=== PATIENT | female | born 1980 | race Caucasian/White ===

== ENCOUNTER → 2017-03-22 | Outpatient (CLI) | payer OTHER ==
[~2017-03-22] MED LIST: BIRTH CONTROL PO; FLEXERIL10 M1 PO; NAPROXEN EC375 MG PO; SYNTHROID 0.0.125 MG PO; TYLENOL W/CODEI1 TA2 PO
== END ==
LOC: RT 15:56
DX: R07.9 Chest pain, unspecified (principal); R06.02 Shortness of breath; R94.31 Abnormal electrocardiogram [ECG] [EKG]; R60.9 Edema, unspecified

== ENCOUNTER 2017-05-06 20:18 | Emergency (ER) | payer OTHER ==
[~2017-05-06] VITALS: Ht 167.6 cm; Wt 152.1 kg
--- OUTSIDE RECORDS SUMMARY | 2017-05-06 20:27 | External Medical Summary Rpt ---
Author Author IBRAHIMA Smith, [employer] Organization [employer] Address Unknown Phone Unavailable Results Hemoglobin A1c in Blood Observa Value Referen Units Interpr Notes Date tion ce etation Range Hemoglo 5.8 0.0 - % Normal < 6% Feb 13 bin A1c 7.0 NON-KETTY 2017 in [facility] 9:13 AM Blood LEVEL< 7% CONTROL LED DIABETI C LEVEL> 8% POORLY CONTROL LED DIABETI C LEVEL
--- OUTSIDE RECORDS SUMMARY | 2017-05-06 20:27 | External Medical Summary Rpt | CCD ---
Demographics Preferred Language Serbian Marital Status Unknown Baptist Affiliation Unknown Race Unknown Ethnic Group Unknown Author Author , IBRAHIMA ALEXANDRA Address Unknown Phone Immunization No patient found.
--- OUTSIDE RECORDS SUMMARY | 2017-05-06 20:27 | External Medical Summary Rpt | CCD ---
Demographics Preferred Language Slovenian Marital Status Unknown Roman Catholic Affiliation Unknown Race Unknown Ethnic Group Unknown Author Author , IBRAHIMA ALEXANDRA Address Unknown Phone Immunization No patient found.
--- OUTSIDE RECORDS SUMMARY | 2017-05-06 20:27 | External Medical Summary Rpt | CCD ---
Author Author , NAYELI ALEXANDRA Address Unknown Phone [email or web address] Purpose Continuity of Care Document - 02-13-2017 through 2016 Problems Code Diagnosis DOS Provider Status M54.30 SCIATICA, UNSPECIFIED SIDE R10.9 UNSPECIFIED ABDOMINAL PAIN Results Labs Lab Lab Date Result Refere Interp Status Commen Order Detail nces retati t Range on Hemoglobin A1c in Blood (02-13-2017 09:13) Hemoglo 5.8 % 0.0% Normal complet bin A1c 017 - ed in 09:13 7.0% Blood
--- OUTSIDE RECORDS SUMMARY | 2017-05-06 20:27 | External Medical Summary Rpt | CCD ---
Author Author , NAYELI ALEXANDRA Address Unknown Phone [email or web address] Purpose Continuity of Care Document - 02-13-2017 [...]
--- OUTSIDE RECORDS SUMMARY | 2017-05-06 20:27 | External Medical Summary Rpt | CCD ---
Author Author [employer] Address Unknown Phone Unavailable Purpose Continuity of Care Document - through 2016
--- NOTE | 2017-05-06 20:43 | Urgent Treatment Center Report ---
History of Present Issue Date/Time Seen by Provider 05/06/172040 Visit Reason Pt arrived:Walked Presenting Problem:PT C/O OF LOWER ABDOMINAL PAIN SINCE 1300 THIS AFTERNOON ALONG WITH DIARRHEA Location if Accident: Onset of symptoms date/time:05/06/17 or onset unknown for: Have you (or family members/close friends) recently traveled outside the [place]? N If Yes, where/when: Have you had exposure to infectious disease within the past month? TB? Other? Specify: c/o right lower abdominal pain since around 1300 today. Loose stools started this morning when first woke up. Didn't think much of it. Right lower back pain x days "just thought sciatica". pain still present in back "but feels like it has radiated more around to the front here ( touching right lower abdomen)". pain progressively getting worse throughout the day to the point that it is nearly unbearable. Pt texted's PCP, Raeann Deutsch, who suggested evaluation. Hx of total hysterectomy, robina, 3 csections and gastric bypass. Does have appendix. Denies dysuria, urinary frequency, urine odor. Source patient Exam Limitations obesity ALLERGIES Coded Allergies: Penicillins (07/17/16) Sulfa (Sulfonamide Antibiotics) (07/17/16) cephalexin (07/17/16) iodine (07/17/16) Home Medications Reported Medications No Known Home Medications History Medical History General CAD? No Angina: No [place]: No Hypertension? No Hyperlipidemia? No CHF? No DVT? No PE? No COPD? No Asthma? No Anemia? No GERD? No Gastric ulcers? No GI Bleed? No Hernia? No Thyroid Problems? No Hypothyroidism? No CVA? No Seizures? No Diabetes? No Renal Insuffiency? No UTI? No Stones? Yes GB Disease: Yes Nephritic Syndrome? No Asplenia? No Hepatitis? No Sickle Cell Disease? No Arthritis? No Migraines? No Cataracts? No Glaucoma? No MRSA? No HIV? No TB? No Anxiety? No Depression? No Cancer? No More? No Immunization HX DT/Tetanus Unknown Flu 2013-FSN Pneumonia Never Had Surgical Hx Previous Surgery?Y GALL BLADDER GASTRIC BYPASS C-SECTIONS X 3 WISDOM TEETH HYSTERECTOMY Family History Family HX Diabetes No CAD Yes Hypertension No Hyperlipidemia No Cancer No TB No Social History Smoking Hx Smoker: Never Smoker Tobacco: No Alcohol Alcohol: No Review of Systems All Other Systems Reviewed and Negative Constitutional denies fever, denies malaise Respiratory denies shortness of breath Cardiovascular denies chest pain Gastrointestinal see HPI, nausea (mild, intermittent), denies vomiting Genitourinary see HPI. Musculoskeletal see HPI Skin denies lesions, denies lumps, denies rash Psychiatric/Neurological denies headache, denies other (dizziness) Physical Exam Vital Signs Vital Signs Date Time Temp Pulse Resp B/P Pulse O2 O2 Flow FiO2 Ox Delivery Rate 05/06 2028 98.1 80 20 130/87 98 General Appearance mild distress, obese Respiratory Status No: respiratory distress. Lung Sounds anterior: lungs clear. posterior: lungs clear. bilateral: lungs clear. Cardiovascular regular rate/rhythm, no peripheral edema, no murmur Gastrointestinal soft, no organomegaly, abnormal bowel sounds (hyperactive), no guarding, no rebound, tenderness (RLQ), negative psoas Back CVA tenderness (R), CVA tenderness (L) Neurologic alert, oriented x 3 Skin normal color, warm/dry Medical Decision Making LABS/Meds/Orders Pt receiving controlled substance in ED? No Results/Orders Laboratory Tests 05/06/172048: Urine Color YELLOW, Urine Appearance Clear, Urine pH 6.0, Ur Specific [place] 1.025, Urine Protein NEGATIVE, Urine Ketones NEGATIVE, Urine Blood NEGATIVE, Urine Nitrate NEGATIVE, Urine Bilirubin NEGATIVE, Urine Urobilinogen 0.2, Ur Leukocyte Esterase NEGATIVE, Urine Glucose NEGATIVE Orders Procedure Date/time Status [facility] [place] URINE DIPSTICK 05/06 2049 Complete Departure Departure Time of Disposition 2057 Disposition Still a Patient Clinical Impression Primary Impression: Abdominal pain, right lower quadrant Condition STABLE Additional Instructions Discussed symptoms, exam, u/a, [facility] guidelines with pt who agrees further workup necessary and agreeable to transfer to ER. Report called to [facility] home based assistant in [facility] ER. Dr. Cuevas and charge w/ critical patient and unable to take report. Prescriptions Current Visit Scripts No Known Home Medications at 2100
--- NOTE | 2017-05-06 20:43 | Urgent Treatment Center Report ---
History of Present Issue Date/Time Seen by Provider 05/06/172040 Visit Reason Pt arrived:Walked Presenting Problem:PT C/O OF LOWER ABDOMINAL PAIN SINCE 1300 THIS AFTERNOON ALONG WITH DIARRHEA Location if Accident: Onset of symptoms date/time:05/06/17 or onset unknown for: Have you (or family members/close friends) recently traveled outside the [place]? N If Yes, where/when: Have you had exposure to infectious disease within the past month? TB? Other? Specify: c/o right lower abdominal pain since around 1300 today. Loose stools started this morning when first woke up. Didn't think much of it. Right lower back pain x days "just thought sciatica". pain still present in back "but feels like it has radiated more around to the front here ( touching right lower abdomen)". pain progressively getting worse throughout the day to the point that it is nearly unbearable. Pt texted's PCP, Raeann Deutsch, who suggested evaluation. Hx of total hysterectomy, robina, 3 csections and gastric bypass. Does have appendix. Denies dysuria, urinary frequency, urine odor. Source patient Exam Limitations obesity ALLERGIES Coded Allergies: Penicillins (07/17/16) Sulfa (Sulfonamide Antibiotics) (07/17/16) cephalexin (07/17/16) iodine (07/17/16) Home Medications Reported Medications No Known Home Medications History Medical History General CAD? No Angina: No OR: No Hypertension? No Hyperlipidemia? No CHF? No DVT? No PE? No COPD? No Asthma? No Anemia? No GERD? No Gastric ulcers? No GI Bleed? No Hernia? No Thyroid Problems? No Hypothyroidism? No CVA? No Seizures? No Diabetes? No Renal Insuffiency? No UTI? No Stones? Yes GB Disease: Yes Nephritic Syndrome? No Asplenia? No Hepatitis? No Sickle Cell Disease? No Arthritis? No Migraines? No Cataracts? No Glaucoma? No MRSA? No HIV? No TB? No Anxiety? No Depression? No Cancer? No More? No Immunization HX DT/Tetanus Unknown Flu 2013-FSN Pneumonia Never Had Surgical Hx Previous Surgery?Y GALL BLADDER GASTRIC BYPASS C-SECTIONS X 3 WISDOM TEETH HYSTERECTOMY Family History Family HX Diabetes No CAD Yes Hypertension No Hyperlipidemia No Cancer No TB No Social History Smoking Hx Smoker: Never Smoker Tobacco: No Alcohol Alcohol: No Review of Systems All Other Systems Reviewed and Negative Constitutional denies fever, denies malaise Respiratory denies shortness of breath Cardiovascular denies chest pain Gastrointestinal see HPI, nausea (mild, intermittent), denies vomiting Genitourinary see HPI. Musculoskeletal see HPI Skin denies lesions, denies lumps, denies rash Psychiatric/Neurological denies headache, denies other (dizziness) Physical Exam Vital Signs Vital Signs Date Time Temp Pulse Resp B/P Pulse O2 O2 Flow FiO2 Ox Delivery Rate 05/06 2028 98.1 80 20 130/87 98 General Appearance mild distress, obese Respiratory Status No: respiratory distress. Lung Sounds anterior: lungs clear. posterior: lungs clear. bilateral: lungs clear. Cardiovascular regular rate/rhythm, no peripheral edema, no murmur Gastrointestinal soft, no organomegaly, abnormal bowel sounds (hyperactive), no guarding, no rebound, tenderness (RLQ), negative psoas Back CVA tenderness (R), CVA tenderness (L) Neurologic alert, oriented x 3 Skin normal color, warm/dry Medical Decision Making LABS/Meds/Orders Pt receiving controlled substance in ED? No Results/Orders Laboratory Tests 05/06/172048: Urine Color YELLOW, Urine Appearance Clear, Urine pH 6.0, Ur Specific [place] 1.025, Urine Protein NEGATIVE, Urine Ketones NEGATIVE, Urine Blood NEGATIVE, Urine Nitrate NEGATIVE, Urine Bilirubin NEGATIVE, Urine Urobilinogen 0.2, Ur Leukocyte Esterase NEGATIVE, Urine Glucose NEGATIVE Orders Procedure Date/time Status [facility] URINE DIPSTICK 05/06 2049 Complete Departure Departure Time of Disposition 2057 Disposition Still a Patient Clinical Impression Primary Impression: Abdominal pain, right lower quadrant Condition STABLE Additional Instructions Discussed symptoms, exam, u/a, [facility] guidelines with pt who agrees further workup necessary and agreeable to transfer to ER. Report called to Deja fitness consultant in [facility] ER. Dr. Cuevas and charge w/ critical patient and unable to take report. Prescriptions Current Visit Scripts No Known Home Medications at 2100
[2017-05-06 20:55] LABS: URINE BILIRUBIN - DIPSTICK NEGATIVE (NEG); URINE BLOOD NEGATIVE (NEG)
[2017-05-06 21:24] LABS: URINE BILIRUBIN - DIPSTICK NEGATIVE (NEG); URINE BLOOD NEGATIVE (NEG)
[2017-05-06 21:41] LABS: HEMOGLOBIN 11.3 g/dL (12.2-16.2); LYMPH # 2.9 K/mm3 (0.7-4.5); LYMPH % 40.1 % (10-50.0)
[2017-05-06 21:48] LABS: URINE SQUAMOUS CELLS TNTC #/hpf (0-5)
[2017-05-06] MEDS ORDERED: ETODOLAC200 MG PO (22:45)
--- NOTE | 2017-05-06 22:46 | Emergency Room Report ---
History of Present Illness Time Seen by 220 Presenting Problem in Triage Pt arrived:Walked Presenting Problem:PT C/O OF LOWER ABDOMINAL PAIN SINCE 1300 THIS AFTERNOON ALONG WITH DIARRHEA DESCRIBES PAIN STARTING IN BACK AND RADIATING AROUND TO RLQ Onset of symptoms date/time:05/06/17 or onset unknown for:MEDICAL HX UNKNOWN Treatment Prior to Arrival: SENT OVER FROM [facility] [employer] Provided by:NURSE Sepsis Risk Assessment: Temp: 97.7 B/P: 144/73 MAP: 101 Pulse: 66 Resp: 20 Recent fever? N Clinical Suspician of Infection? N Mental Status: 1 - Regular (Normal Baseline) Sepsis Risk:Low Sepsis Risk Have you (or family members/close friends) recently traveled outside the [place]? N If Yes, where/when: Have you had exposure to infectious disease within the past month? N TB? Other? Specify: Source patient, RN notes reviewed, RN/MD Exam Limitations no limitations Comment This is a 36-year-old female patient arriving to the emergency room with RIGHT lower back pain radiating to the RIGHT lower quadrant abdomen for the past one week. Patient has any nausea, vomiting, fever, diarrhea or chills. Patient also denies any recent travel or exposure to sick contacts. She has a history of kidney stones in the past. ALLERGIES Coded Allergies: Penicillins (07/17/16) Sulfa (Sulfonamide Antibiotics) (07/17/16) cephalexin (07/17/16) iodine (07/17/16) History Medical History General CAD? No Angina: No MD: No Hypertension? No Hyperlipidemia? No CHF? No DVT? No PE? No COPD? No Asthma? No Anemia? No GERD? No Gastric ulcers? No GI Bleed? No Hernia? No Thyroid Problems? No Hypothyroidism? No CVA? No Seizures? No Diabetes? No Renal Insuffiency? No End Stage Renal Disease? No UTI? No Stones? Yes GB Disease: Yes Nephritic Syndrome? No Asplenia? No Hepatitis? No Sickle Cell Disease? No Arthritis? No Migraines? No Cataracts? No Glaucoma? No MRSA? No HIV? No TB? No Anxiety? No Depression? No Cancer? No More? 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 N/A Comment HYSTERECTOMY Family History Family Hx Diabetes No CAD Yes Hypertension No Hyperlipidemia No Cancer No TB No Social History Smoking Hx Smoker: Never Smoker Tobacco: No Alcohol Alcohol: No Review of Systems All Other Systems Reviewed and Negative Gastrointestinal abdominal pain Musculoskeletal see HPI, back pain Physical Exam Vital Signs Vital Signs Date Time Temp Pulse Resp B/P Pulse O2 O2 Flow FiO2 Ox Delivery Rate 05/067 66 20 144/73 98 05/06 2223 97.7 66 20 144/73 98 05/06 2200 97.7 66 20 113/54 98 05/06 2105 98.1 80 20 130/87 98 05/06 2028 98.1 80 20 130/87 98 General Appearance normal appearance, WD/WN, no apparent distress Respiratory Status Yes: trachea midline, chest symmetrical, non tender chest. No: respiratory distress. Lung Sounds bilateral: normal breath sounds, lungs clear. Cardiovascular normal exam, regular rate/rhythm, no peripheral edema, no gallop, no JVD, no murmur, no rub, normal peripheral pulses Peripheral Pulses Pulses normal Yes Gastrointestinal normal bowel sounds, normal exam, soft, no organomegaly, tenderness (minimal RLQ tenderness) Back normal inspection, no CVA tenderness, no vertebral tenderness, gait normal, muscle spasm Extremities non-tender, normal range of motion, normal inspection Neurologic alert, tattoo technician II-XII nml as tested, normal exam, oriented x 3 Mental status normal mood/affect Skin intact, normal color, warm/dry Medical Decision Making LABS/Meds/Orders Pt receiving controlled substance in ED? No Comment Found the patient using her cell phone, texting, in no acute distress upon reevaluation. She appears in no acute distress. Results/Orders Laboratory Tests 05/06/170: Sodium 140, Potassium 4.2, Chloride 105, Carbon Dioxide 28, BUN 14, Creatinine 0.9, Estimated Creat Clear 208 H, Estimated GFR (MDRD) 71, Glucose 72 L, Calcium 8.6, Total Bilirubin 0.2, AST 28, ALT 32, Alkaline Phosphatase 138 H, Total Protein 7.0, Albumin 3.7, Globulin 3.3 H, Albumin/Globulin Ratio 1.1, WBC 7.3, RBC 4.51, Hgb 11.3 L, Hct 35.9 L, MCV 79.6 L, RDW 14.6, Plt Count 286, MPV 7.6, Gran % 50.8, Gran # 3.7, Lymphocytes % 40.1, Monocytes % 6.6, Eosinophils % 2.2, Basophils % 0.3, Lymphocytes # 2.9, Monocytes # 0.5, Eosinophils # 0.2, Basophils # 0.0, PUBS MCHC 31.6 L, MCH 25.1 L 05/06/172049: Urine Color YELLOW, Urine Appearance CLEAR, Urine pH 6.0, Ur Specific [place] 1.020, Urine Protein NEGATIVE, Urine Ketones NEGATIVE, Urine Blood NEGATIVE, Urine Nitrate NEGATIVE, Urine Bilirubin NEGATIVE, Urine Urobilinogen 0.2, Ur Leukocyte Esterase NEGATIVE, Urine RBC NONE, Urine WBC 3-5, Ur Squamous Epith Cells TNTC, Urine Bacteria 3+, Urine Glucose NEGATIVE 05/06/172048: Urine Color YELLOW, Urine Appearance Clear, Urine pH 6.0, Ur Specific [place] 1.025, Urine Protein NEGATIVE, Urine Ketones NEGATIVE, Urine Blood NEGATIVE, Urine Nitrate NEGATIVE, Urine Bilirubin NEGATIVE, Urine Urobilinogen 0.2, Ur Leukocyte Esterase NEGATIVE, Urine Glucose NEGATIVE Current Medication Orders Sig/An Start time Last Medication Dose Route Stop Time Status Admin Sodium Chloride 10 ML PRN PRN 05/06 2115 DCD IV 05/07 2110 Orders Procedure Date/time Status DIET-NOTHING BY MOUTH 05/[address] ABD & PELVIS W/O CONTRAST 05/[address] ABD/PELVIS REQ 05/06 2110 Complete IV SALINE LOCK 05/06 2110 Active URINALYSIS/COMPLETE 05/06 2110 Complete CBC WITH AUTO DIFF 05/06 2110 Complete CHEM 12 PROFILE 05/06 2110 Complete CULTURE, URINE 05/06 2050 Active SCC URINE DIPSTICK 05/06 2049 Complete XRAY/CT/US XRAY/CT/US CT abdomen, pelvis CT interpretation by discussed w/radiologist CT Results see radiologist's report Departure Departure Time of Disposition 2242 Disposition DC Home or Self Care(routine) Clinical Impression Primary Impression: Abdominal pain, right lower quadrant Secondary Impressions: Back pain Qualifiers: Back pain location: low back pain Chronicity: acute Back pain laterality: right Sciatica presence: without sciatica Qualified Code: M54.5 - Low back pain Condition STABLE Referrals RAEANN ARIZA (Family): [facility]Call Office Patient Instructions DI for Abdominal Pain-Adult, DI for Low Back Pain Additional Instructions Please follow-up with Raeann Deutsch in the morning. Discharge Counseling Counseled pt/family regarding diagnosis, test results, medications/RX, home care, follow up needs Comment Please follow-up with Raeann Deutsch in the morning. Prescriptions Current Visit Scripts Etodolac 200 MG PO QIDP PRN pain #20 CAP ED Critical Care Critical Care No at 0305
--- NOTE | 2017-05-06 22:46 | Emergency Room Report ---
History of Present Illness Time Seen by 220 Presenting Problem in Triage Pt arrived:Walked Presenting Problem:PT C/O OF LOWER ABDOMINAL PAIN SINCE 1300 THIS AFTERNOON ALONG WITH DIARRHEA DESCRIBES PAIN STARTING IN BACK AND RADIATING AROUND TO RLQ Onset of symptoms date/time:05/06/17 or onset unknown for:MEDICAL HX UNKNOWN Treatment Prior to Arrival: SENT OVER FROM [facility] Provided by:NURSE Sepsis Risk Assessment: Temp: 97.7 B/P: 144/73 MAP: 101 Pulse: 66 Resp: 20 Recent fever? N Clinical Suspician of Infection? N Mental Status: 1 - Regular (Normal Baseline) Sepsis Risk:Low Sepsis Risk Have you (or family members/close friends) recently traveled outside the [place]? N If Yes, where/when: Have you had exposure to infectious disease within the past month? N TB? Other? Specify: Source patient, RN notes reviewed, RN/MD Exam Limitations no limitations Comment This is a 36-year-old female patient arriving to the emergency room with RIGHT lower back pain radiating to the RIGHT lower quadrant abdomen for the past one week. Patient has any nausea, vomiting, fever, diarrhea or chills. Patient also denies any recent travel or exposure to sick contacts. She has a history of kidney stones in the past. ALLERGIES Coded Allergies: Penicillins (07/17/16) Sulfa (Sulfonamide Antibiotics) (07/17/16) cephalexin (07/17/16) iodine (07/17/16) History Medical History General CAD? No Angina: No MS: No Hypertension? No Hyperlipidemia? No CHF? No DVT? No PE? No COPD? No Asthma? No Anemia? No GERD? No Gastric ulcers? No GI Bleed? No Hernia? No Thyroid Problems? No Hypothyroidism? No CVA? No Seizures? No Diabetes? No Renal Insuffiency? No End Stage Renal Disease? No UTI? No Stones? Yes GB Disease: Yes Nephritic Syndrome? No Asplenia? No Hepatitis? No Sickle Cell Disease? No Arthritis? No Migraines? No Cataracts? No Glaucoma? No MRSA? No HIV? No TB? No Anxiety? No Depression? No Cancer? No More? 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 Comment HYSTERECTOMY Family History Family Hx Diabetes No CAD Yes Hypertension No Hyperlipidemia No Cancer No TB No Social History Smoking Hx Smoker: Never Smoker Tobacco: No Alcohol Alcohol: No Review of Systems All Other Systems Reviewed and Negative Gastrointestinal abdominal pain Musculoskeletal see HPI, back pain Physical Exam Vital Signs Vital Signs Date Time Temp Pulse Resp B/P Pulse O2 O2 Flow FiO2 Ox Delivery Rate 05/067 66 20 144/73 98 05/06 2223 97.7 66 20 144/73 98 05/06 2200 97.7 66 20 113/54 98 05/06 2105 98.1 80 20 130/87 98 05/06 2028 98.1 80 20 130/87 98 General Appearance normal appearance, WD/WN, no apparent distress Respiratory Status Yes: trachea midline, chest symmetrical, non tender chest. No: respiratory distress. Lung Sounds bilateral: normal breath sounds, lungs clear. Cardiovascular normal exam, regular rate/rhythm, no peripheral edema, no gallop, no JVD, no murmur, no rub, normal peripheral pulses Peripheral Pulses Pulses normal Yes Gastrointestinal normal bowel sounds, normal exam, soft, no organomegaly, tenderness (minimal RLQ tenderness) Back normal inspection, no CVA tenderness, no vertebral tenderness, gait normal, muscle spasm Extremities non-tender, normal range of motion, normal inspection Neurologic alert, dispatcher refinery II-XII nml as tested, normal exam, oriented x 3 Mental status normal mood/affect Skin intact, normal color, warm/dry Medical Decision Making LABS/Meds/Orders Pt receiving controlled substance in ED? No Comment Found the patient using her cell phone, texting, in no acute distress upon reevaluation. She appears in no acute distress. Results/Orders Laboratory Tests 05/06/170: Sodium 140, Potassium 4.2, Chloride 105, Carbon Dioxide 28, BUN 14, Creatinine 0.9, Estimated Creat Clear 208 H, Estimated GFR (MDRD) 71, Glucose 72 L, Calcium 8.6, Total Bilirubin 0.2, AST 28, ALT 32, Alkaline Phosphatase 138 H, Total Protein 7.0, Albumin 3.7, Globulin 3.3 H, Albumin/Globulin Ratio 1.1, WBC 7.3, RBC 4.51, Hgb 11.3 L, Hct 35.9 L, MCV 79.6 L, RDW 14.6, Plt Count 286, MPV 7.6, Gran % 50.8, Gran # 3.7, Lymphocytes % 40.1, Monocytes % 6.6, Eosinophils % 2.2, Basophils % 0.3, Lymphocytes # 2.9, Monocytes # 0.5, Eosinophils # 0.2, Basophils # 0.0, PUBS MCHC 31.6 L, MCH 25.1 L 05/06/172049: Urine Color YELLOW, Urine Appearance CLEAR, Urine pH 6.0, Ur Specific [place] 1.020, Urine Protein NEGATIVE, Urine Ketones NEGATIVE, Urine Blood NEGATIVE, Urine Nitrate NEGATIVE, Urine Bilirubin NEGATIVE, Urine Urobilinogen 0.2, Ur Leukocyte Esterase NEGATIVE, Urine RBC NONE, Urine WBC 3-5, Ur Squamous Epith Cells TNTC, Urine Bacteria 3+, Urine Glucose NEGATIVE 05/06/172048: Urine Color YELLOW, Urine Appearance Clear, Urine pH 6.0, Ur Specific [place] 1.025, Urine Protein NEGATIVE, Urine Ketones NEGATIVE, Urine Blood NEGATIVE, Urine Nitrate NEGATIVE, Urine Bilirubin NEGATIVE, Urine Urobilinogen 0.2, Ur Leukocyte Esterase NEGATIVE, Urine Glucose NEGATIVE Current Medication Orders Sig/An Start time Last Medication Dose Route Stop Time Status Admin Sodium Chloride 10 ML PRN PRN 05/06 2115 DCD IV 05/07 2110 Orders Procedure Date/time Status DIET-NOTHING BY MOUTH 05/[address] ABD & PELVIS W/O CONTRAST 05/[address] ABD/PELVIS REQ 05/06 2110 Complete IV SALINE LOCK 05/06 2110 Active URINALYSIS/COMPLETE 05/06 2110 Complete CBC WITH AUTO DIFF 05/06 2110 Complete CHEM 12 PROFILE 05/06 2110 Complete CULTURE, URINE 05/06 2050 Active MAC URINE DIPSTICK 05/06 2049 Complete XRAY/CT/US XRAY/CT/US CT abdomen, pelvis CT interpretation by discussed w/radiologist CT Results see radiologist's report Departure Departure Time of Disposition 2242 Disposition DC Home or Self Care(routine) Clinical Impression Primary Impression: Abdominal pain, right lower quadrant Secondary Impressions: Back pain Qualifiers: Back pain location: low back pain Chronicity: acute Back pain laterality: right Sciatica presence: without sciatica Qualified Code: M54.5 - Low back pain Condition STABLE Referrals RAEANN ARIZA (Family): [facility] Patient Instructions DI for Abdominal Pain-Adult, DI for Low Back Pain Additional Instructions Please follow-up with Raeann Deutsch in the morning. Discharge Counseling Counseled pt/family regarding diagnosis, test results, medications/RX, home care, follow up needs Comment Please follow-up with Raeann Deutsch in the morning. Prescriptions Current Visit Scripts Etodolac 200 MG PO QIDP PRN pain #20 CAP ED Critical Care Critical Care No at 0305
[2017-05-06 22:47] VITALS: BP 144/73
--- NOTE | 2017-05-07 07:12 | RADIOLOGY REPORT PS360 ---
CT ABD PELVIS W/O CONTRAST CLINICAL INDICATION: Abdominal pain, right lower quadrant pain, right flank pain FLANK PAIN ORDERING PHYSICIAN: Paxton Cantu MD PATIENT AGE: 36 years COMPARISON: 07/17/2016 TECHNIQUE: Axial images obtained with sagittal and coronal reformats. PROCEDURE: Oral Contrast: None IV Contrast: None . FINDINGS: Lung bases are clear. There has been a prior cholecystectomy. No biliary dilatation. The liver is unremarkable. There is mild splenomegaly at 15 cm. Prior gastric bypass with gastrojejunostomy. The stomach is partially fluid-filled. The pancreas and adrenal glands and kidneys as well as ureters and urinary bladder have an unremarkable unenhanced appearance. Prior hysterectomy. Unremarkable appendix. No evidence of diverticulitis, intestinal obstruction, or free air. There are postsurgical changes of the anterior abdominal wall. No acute bony anomalies IMPRESSION: 1. No acute intra-abdominal or pelvic pathology. 2. Mild splenomegaly
== END 2017-05-06 22:51 | disposition home or self-care (01) ==
LOC: UTC 20:18 → ER 20:24
PROVIDERS: Emergency Medicine; Nurse Practitioner Family
DX: M54.5 Low back pain (principal); Z98.84 Bariatric surgery status; Z87.442 Personal history of urinary calculi